=== PATIENT | female | born 1995 | race Caucasian/White ===

== ENCOUNTER 2019-04-04 18:24 | Emergency (ER) | payer OTHER ==
--- NOTE | 2019-04-04 18:54 | EDPHYS ---
Physician Documentation [facility] Name: Agustina Hernandez Age: 23 yrs Sex: Female : 1995 Arrival Date: 04/04/2019 Time: 18:29 Bed 24 Private MD: ED Physician Yannick Baird HPI: 04/04 18:50 This 23 yrs old Female presents to ER via Ambulatory with complaints of Sinus pm1 Congestion and Right Ear Pain. 18:50 The patient presents with pain, right ear and right side of sinuses. Onset: The pm1 symptoms/episode began/occurred 3 day(s) ago. Modifying factors: The symptoms are alleviated by nothing, the symptoms are aggravated by touching. Associated signs and symptoms: Pertinent negatives: cough, fever, sore throat. Severity of symptoms: in the emergency department the symptoms are worse. The patient has not recently seen a physician, and does not have an established primary care provider. 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 - Social history:: Smoking status: Patient/guardian denies using tobacco. - Ebola Screening: : No symptoms or risks identified at this time. ROS: 18:50 Constitutional: Negative for fever, chills, and weight loss, Eyes: Negative for injury, pm1 pain, redness, and discharge. 18:50 Neck: Negative for injury, pain, and swelling, Cardiovascular: Negative for chest pain, palpitations, and edema, Respiratory: Negative for shortness of breath, cough, wheezing, and pleuritic chest pain, Abdomen/GI: Negative for abdominal pain, nausea, vomiting, diarrhea, and constipation, Back: Negative for injury and pain, MS/Extremity: Negative for injury and deformity, Skin: Negative for injury, rash, and discoloration, Neuro: Negative for headache, weakness, numbness, tingling, and seizure. 18:50 ENT: Positive for ear pain, sinus congestion, sinus pain, Negative for sore throat, dental pain, difficulty swallowing, hoarseness. Exam: 18:50 Constitutional: This is a well developed, well nourished patient who is awake, alert, pm1 and in no acute distress. 18:50 Eyes: Pupils equal round and reactive to light, extra-ocular motions intact. Lids and lashes normal. Conjunctiva and sclera are non-icteric and not injected. Cornea within normal limits. Periorbital areas with no swelling, redness, or edema. 18:50 Neck: Trachea midline, no thyromegaly or masses palpated, and no cervical lymphadenopathy. Supple, full range of motion without nuchal rigidity, or vertebral point tenderness. No Meningismus. Chest/axilla: Normal chest wall appearance and motion. Nontender with no deformity. No lesions are appreciated. Cardiovascular: Regular rate and rhythm with a normal S1 and S2. No gallops, murmurs, or rubs. Normal PMI, no JVD. No pulse deficits. Respiratory: Lungs have equal breath sounds bilaterally, clear to auscultation and percussion. No rales, rhonchi or wheezes noted. No increased work of breathing, no retractions or nasal flaring. Back: No spinal tenderness. No costovertebral tenderness. Full range of motion. Skin: Warm, dry with normal turgor. Normal color with no rashes, no lesions, and no evidence of cellulitis. MS/ Extremity: Pulses equal, no cyanosis. Neurovascular intact. Full, normal range of motion. 18:50 Head/face: Sinus tenderness, that is moderate, is located over the right frontal sinus and right maxillary sinus. 18:50 ENT: External ear(s): are unremarkable, Ear canal(s): are normal, TM's: bulging, on the right, erythema, that is moderate, on the right, Examination of the other ear shows no obvious abnormality, Nose: is normal, Mouth: is normal, Posterior pharynx: is normal, airway is patent, no erythema, no exudate, no peritonsilar mass, no pooling of secretions, no swelling. 18:50 Neuro: Orientation: is normal, Motor: is normal, moves all fours, Gait: is steady, at a normal pace, without difficulty. Vital Signs: 18:32 BP 97 / 56; Pulse 96; Resp 16; Temp 98; Pulse Ox 100% on R/A; Weight 51.26 kg; Height 5 hb ft. 4 in. (162.56 cm); Pain 5/10; 18:32 Body Mass Index 19.40 (51.26 kg, 162.56 cm) MDM: 18:45 Patient medically screened. pm1 18:51 Data reviewed: vital signs. Data interpreted: Pulse oximetry: on room air is 100 %. pm1 Interpretation: normal. Counseling: I had a detailed discussion with the patient and/or guardian regarding: the historical points, exam findings, and any diagnostic results supporting the discharge/admit diagnosis, the need for outpatient follow up, to return to the emergency department if symptoms worsen or persist or if there are any questions or concerns that arise at home. Administered Medications: No medications were administered Disposition: 04/04/19 18:53 Discharged to Home. Impression: Otitis media, unspecified, right ear, Acute sinusitis. - Condition is Stable. - Discharge Instructions: Otitis Media, Adult, Sinusitis, Adult. - Prescriptions for Augmentin 875- 125 mg Oral Tablet - take 1 tablet by ORAL route every 12 hours for 10 days; 20 tablet. Zyrtec- D 5-120 mg Oral Tablet Sustained Release 12 hr - take 1 tablet by ORAL route every 12 hours As needed; 20 tablet. - Medication Reconciliation Form, Thank You Letter, Antibiotic Education, Prescription Opioid Use form. - Follow up: Emergency Department; When: As needed; Reason: Worsening of condition. Follow up: Private Physician; When: 2 - 3 days; Reason: Recheck today's complaints, Continuance of care, Re-evaluation by your physician. - Problem is new. - Symptoms have improved. Addendum: 04/07/2019 04:04 Co-signature as Attending Physician, Yannick Baird MD. g s Signatures: Donnie Burgess, ADVANCE AGENT ADVANCE AGENT pm1 Tricia Chaudhary RN RN Yannick Baird MD MD Matthew Harden RN RN mg2 Corrections: (The following items were deleted from the chart) 04/04 19:05 18:53 04/04/2019 18:53 Discharged to Home. Impression: Otitis media, unspecified, right mg2 ear; Acute sinusitis. Condition is Stable. Forms are Medication Reconciliation Form, Thank You Letter, Antibiotic Education, Prescription Opioid Use. Follow up: Emergency Department; When: As needed; Reason: Worsening of condition. Follow up: Private Physician; When: 2 - 3 days; Reason: Recheck today's complaints, Continuance of care, Re-evaluation by your physician. Problem is new. Symptoms have improved. pm1
--- NOTE | 2019-04-04 18:54 | ER ---
Nurse's Notes [facility] Name: Agustina Hernandez Age: 23 yrs Sex: Female : 1995 Arrival Date: 04/04/2019 Time: 18:29 Bed 24 Private MD: Diagnosis: Otitis media, unspecified, right ear;Acute sinusitis Presentation: 04/04 18:31 Presenting complaint: Sinus congestion and pressure x 3 days. Denies cough/fever. hb Transition of care: patient was not received from another setting of care. Onset of symptoms was April 01, 2019. Risk Assessment: Do you want to hurt yourself or someone else? Patient reports no desire to harm self or others. 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 18:31 Method Of Arrival: Ambulatory hb 18:31 Acuity: ARNOLD 4 hb 18:52 Initial Sepsis Screen: Does the patient meet any 2 criteria? No. Patient's initial mg2 sepsis screen is negative. Does the patient have a suspected source of infection? No. Patient's initial sepsis screen is negative. 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 - Social history:: Smoking status: Patient/guardian denies using tobacco. - Ebola Screening: : No symptoms or risks identified at this time. Screenin:51 Abuse screen: Denies threats or abuse. Denies injuries from another. Nutritional mg2 screening: No deficits noted. Tuberculosis screening: No symptoms or risk factors identified. Fall Risk None identified. Assessment: 18:50 General: Appears in no apparent distress. comfortable, Behavior is calm, cooperative. mg2 Pain: Complains of pain in right ear and nasal area Pain does not radiate. Pain currently is 3 out of 10 on a pain scale. Quality of pain is described as aching. Pain: Pain began 2-3 days ago. Neuro: Cardiovascular: Capillary refill < 3 seconds Patient's skin is warm and dry. Respiratory: Airway is patent Respiratory effort is even, unlabored, Respiratory pattern is regular, symmetrical. GI: No signs and/or symptoms were reported involving the gastrointestinal system. : No signs and/or symptoms were reported regarding the genitourinary system. EENT: Reports pain right ear and nasal area. Derm: Skin is intact, is healthy with good turgor, Skin is pink, warm \T\ dry. normal. Musculoskeletal: Circulation, motion, and sensation intact. Capillary refill < 3 seconds. Vital Signs: 18:32 BP 97 / 56; Pulse 96; Resp 16; Temp 98; Pulse Ox 100% on R/A; Weight 51.26 kg; Height 5 hb ft. 4 in. (162.56 cm); Pain 5/10; 18:32 Body Mass Index 19.40 (51.26 kg, 162.56 cm) hb ED Course: 18:29 Patient arrived in ED. mr 18:32 Triage completed. hb 18:32 Arm band placed on. hb 18:44 Donnie Burgess NP is PHCP. pm1 18:44 Yannick Baird MD is Attending Physician. pm1 18:45 Matthew Harden, LUIS is Primary Nurse. mg2 18:52 Patient has correct armband on for positive identification. mg2 18:52 No provider procedures requiring assistance completed. Patient did not have IV access mg2 during this emergency room visit. Administered Medications: No medications were administered Outcome: 18:53 Discharge ordered by . pm1 19:04 Discharged to home ambulatory. mg2 19:04 Condition: stable 19:04 Discharge instructions given to patient, Instructed on discharge instructions, follow up and referral plans. medication usage, Demonstrated understanding of instructions, follow-up care, medications, Prescriptions given X 2. 19:05 Patient left the ED. mg2 Signatures: Kaushal Nika cintron Donnie Burgess, ERICA AUTOMATIC MACHINE ATTENDANT pm1 Tricia Chaudhary, LUIS RN Matthew Harden RN RN mg2
== END 2019-04-04 19:05 | disposition home or self-care (01) ==
LOC: ER 18:24
DX: H66.91 Otitis media, unspecified, right ear (principal); J01.90 Acute sinusitis, unspecified
CPT/HCPCS: 99282

== ENCOUNTER 2021-09-04 16:32 | Inpatient (IN) | payer OTHER ==
--- OUTSIDE RECORDS SUMMARY | 2021-09-04 18:15 | XMS REPORT | Continuity of Care Document ---
:1995 Author Organization [facility] t Address [address] [place] [address] Care Team Providers Name Role Phone Edgar Mason Attending Clinician Unavailable Dorita Heredia Attending Clinician Unavailable Doctor Unassigned, Name Attending Clinician Unavailable Prince NORTON Attending Clinician Unavailable Prince Norton MD Attending Clinician Heide TERAN Attending Clinician Ryne SMITH Attending Clinician Unavailable Digna Hyatt Attending Clinician Physician, Primary or Family Admitting Clinician UnavailDorita Dey Admitting Clinician Unavailable Payers Payer Name Policy Type Policy Number Effective Date Expiration Date Luly villeda [employer] O [id number] 2014 00:00:00 Problems Condition Condition Condition Status Onset Resolution Last Treating Co mments Source Name Details Category Date Date Treatment Clinician Date No known No known Disease Unive rs active active ity of problems problems [facility] Allergies, Adverse Reactions, Alerts Allergy Allergy Status Severity Reaction(s) Onset Inactive Treating Comm ents Source Name Type Date Date Clinician No Known DA Active U [facility] Allergie 7-15 Clear s 00:00: Gray 00 [facility] No Known DA Active U [facility] Allergie 7-15 Clear s 00:00: Gray 00 [facility] NO KNOWN Drug Active Univers ALLERGIE Class ity of S [facility] Social History Social Habit Start Date Stop Date Quantity Comments Source Exposure to Not sure University SARS-CoV-2 [place] [facility] (event) Branch Alcohol intake 2021-02-02 2021-02-02 Ex-drinker University 00:00:00 00:00:00 (finding) [facility] Tobacco use and 2021-02-02 2021-02-02 Never used Universit y of exposure 00:00:00 00:00:00 [facility] Sex Assigned At [birth year] Universit y of 00:00:00 00:00:00 [facility] Smoking Status Start Date Stop Date Source Never smoker [facility] Medications Ordered Filled Start Stop Current Ordering Indication Dosage Frequency Signature Comments Components Source Medication Medication Date Date Medication? Clinician (SIG) Name Name ampicillin Yes [id number] 500mg Take 1 Univers 500 mg 4-26 capsule by ity of capsule 00:00: mouth [place] 00 every 6 Medical (six) Branch hours. ampicillin Yes [id number] 500mg Take 1 Univers 500 mg 4-26 capsule by ity of capsule 00:00: mouth [place] 00 every 6 Medical (six) Branch hours. ampicillin Yes [id number] 500mg Take 1 Univers 500 mg 4-26 capsule by ity of capsule 00:00: mouth [place] 00 every 6 Medical (six) Branch hours. acetaminoph 2020- No 650mg 650 mg, U nivers en 01-28-23 Oral, ity of (TYLENOL) 22:30: 10:29 ONCE, 1 [place] tablet 650 00 :00 dose, Anuradha Medi alvin mg 01/28/21 at Branch 1730, SAPPHIRE NaCl 0.9% 2020- No 1000mL at 999 Uni vers (NS) bolus 01-28 04-22 mL/hr, ity of infusion 19:00: 20:52 1,000 mL, [place]aza as 1,000 mL 00 :00 IV Medical Infusion, Branch ONCE, 1 dose, Anuradha 01/28/21 at 1400, STAT methylPREDN Yes [id number] Take by Univers ISolone 4 2-15 mouth ity of mg tablets 00:00: [place]INSTRU [place] 00 CTIONS. Medical follow Branch package directions bromphenira Yes [id number] 5mL Take 5 mL Univers mine-pseudo 2-15 by mouth 4 it y of ephedrine-D 00:00: (four[place] (BROMFED 00 times Medical DM) 2-30-10 daily as Bran ch mg/5 mL needed for syrup Congestion /Allergies . albuterol 2020-0 Yes [id number] 2{puff} Inhale 2 Univers 90 2-15 Puffs ity of mcg/actuati 00:00: every 6 [place] on inhaler 00 (six) Medical hours as Branch needed for Wheezing or Shortness of Breath. methylPREDN 2020-0 Yes [id number] Take by Univers ISolone 4 2-15 mouth ity of mg tablets 00:00: [place]-INSTRU [place] 00 CTIONS. Medical follow Branch package directions bromphenira 2020-0 Yes [id number] 5mL Take 5 mL Univers mine-pseudo 2-15 by mouth 4 it y of ephedrine-D 00:00: (four[place] (BROMFED 00 times Medical DM) 2-30-10 daily as Bran ch mg/5 mL needed for syrup Congestion /Allergies . albuterol 2020-0 Yes [id number] 2{puff} Inhale 2 Univers 90 2-15 Puffs ity of mcg/actuati 00:00: every 6 [place] on inhaler 00 (six) Medical hours as Branch needed for Wheezing or Shortness of Breath. methylPREDN 2020-0 Yes [id number] Take by Univers ISolone 4 2-15 mouth ity of mg tablets 00:00: [place]-INSTRU [place] 00 CTIONS. Medical follow Branch package directions bromphenira 2020-0 Yes [id number] 5mL Take 5 mL Univers mine-pseudo 2-15 by mouth 4 it y of ephedrine-D 00:00: (four[place] (BROMFED 00 times Medical DM) 2-30-10 daily as Bran ch mg/5 mL needed for syrup Congestion /Allergies . albuterol 2020-0 Yes [id number] 2{puff} Inhale 2 Univers 90 2-15 Puffs ity of mcg/actuati 00:00: every 6 [place] on inhaler 00 (six) Medical hours as Branch needed for Wheezing or Shortness of Breath. methylPREDN 2020-0 Yes [id number] Take by Univers ISolone 4 2-15 mouth ity of mg tablets 00:00: SEE-INSTRU [place] 00 CTIONS. Medical follow Branch package directions bromphenira 2020-0 Yes [id number] 5mL Take 5 mL Univers mine-pseudo 2-15 by mouth 4 it y of ephedrine-D 00:00: (four[place] (BROMFED 00 times Medical DM) 2-30-10 daily as Bran ch mg/5 mL needed for syrup Congestion /Allergies . albuterol 2020-0 Yes [id number] 2{puff} Inhale 2 Univers 90 2-15 Puffs ity of mcg/actuati 00:00: every 6 [place] on inhaler 00 (six) Medical hours as Branch needed for Wheezing or Shortness of Breath. methylPREDN 2020-0 Yes [id number] Take by Univers ISolone 4 2-15 mouth ity of mg tablets 00:00: SEE-INSTRU [place] 00 CTIONS. Medical follow Branch package directions bromphenira 2020-0 Yes [id number] 5mL Take 5 mL Univers mine-pseudo 2-15 by mouth 4 it y of ephedrine-D 00:00: (four[place] (BROMFED 00 times Medical DM) 2-30-10 daily as Bran ch mg/5 mL needed for syrup Congestion /Allergies . albuterol 2020-0 Yes [id number] 2{puff} Inhale 2 Univers 90 2-15 Puffs ity of mcg/actuati 00:00: every 6 [place] on inhaler 00 (six) Medical hours as Branch needed for Wheezing or Shortness of Breath. methylPREDN 2020-0 Yes [id number] Take by Univers ISolone 4 2-15 mouth ity of mg tablets 00:00: SEE-INSTRU [place] 00 CTIONS. Medical follow Branch package directions bromphenira 2020-0 Yes [id number] 5mL Take 5 mL Univers mine-pseudo 2-15 by mouth 4 it y of ephedrine-D 00:00: (four[place] (BROMFED 00 times Medical DM) 2-30-10 daily as Bran ch mg/5 mL needed for syrup Congestion /Allergies . albuterol 2020-0 Yes [id number] 2{puff} Inhale 2 Univers 90 2-15 Puffs ity of mcg/actuati 00:00: every 6 [place] on inhaler 00 (six) Medical hours as Branch needed for Wheezing or Shortness of Breath. amoxicillin 2019-0 2020- No [id number] 500mg Take 1 Univers 500 mg 11-23 capsule by ity of capsule 00:00: 05:59 mouth 3 [place] 00 :00 (three) Medical times Branch daily for 7 days. Immunizations Ordered Immunization Filled Immunization Date Status Commen ts Source Name Name Influenza Virus 2010-10-18 Completed Universit y of Vaccine 00:00:00 [facility] Influenza Virus 2010-10-18 Completed Universit y of Vaccine 00:00:00 [facility] Influenza Virus 2010-10-18 Completed Universit y of Vaccine 00:00:00 [facility] Influenza Virus 2010-10-18 Completed Universit y of Vaccine 00:00:00 [facility] Influenza Virus 2010-10-18 Completed Universit y of Vaccine 00:00:00 [facility] Influenza Virus 2010-10-18 Completed Universit y of Vaccine 00:00:00 [facility] HPV 2008-05-28 Completed University of 00:00:00 [facility] HPV 2008-05-28 Completed University of 00:00:00 [facility] HPV 2008-05-28 Completed University of 00:00:00 [facility] HPV 2008-05-28 Completed University of 00:00:00 [facility] HPV 2008-05-28 Completed University of 00:00:00 [facility] HPV 2008-05-28 Completed University of 00:00:00 [facility] Meningococcal 2007-10-31 Completed University of Polysaccharide 00:00:00 [place] Medi alvin (groups A, C, Y and Branc h W-135) conjugate vaccine (MCV4P) TDAP 2007-10-31 Completed University of 00:00:00 [facility] HEPATITIS A 2007-10-31 Completed University of 00:00:00 [facility] HPV 2007-10-31 Completed University of 00:00:00 [facility] Meningococcal 2007-10-31 Completed University of Polysaccharide 00:00:00 [place] Medi alvin (groups A, C, Y and Branc h W-135) conjugate vaccine (MCV4P) TDAP 2007-10-31 Completed University of 00:00:00 [facility] HEPATITIS A 2007-10-31 Completed University of 00:00:00 [facility] HPV 2007-10-31 Completed University of 00:00:00 [place] [facility] Meningococcal 2007-10-31 Completed University of Polysaccharide 00:00:00 [place] [facility]vin (groups A, C, Y and Branc h W-135) conjugate vaccine (MCV4P) TDAP 2007-10-31 Completed University of 00:00:00 [facility] HEPATITIS A 2007-10-31 Completed University of 00:00:00 [facility] HPV 2007-10-31 Completed University of 00:00:00 [facility] Meningococcal 2007-10-31 Completed University of Polysaccharide 00:00:00 [place] Medi alvin (groups A, C, Y and Branc h W-135) conjugate vaccine (MCV4P) TDAP 2007-10-31 Completed University of 00:00:00 [facility] HEPATITIS A 2007-10-31 Completed University of 00:00:00 [facility] HPV 2007-10-31 Completed University of 00:00:00 [facility] Meningococcal 2007-10-31 Completed University of Polysaccharide 00:00:00 [place] Med[facility] alvin (groups A, C, Y and Branc h W-135) conjugate vaccine (MCV4P) TDAP 2007-10-31 Completed University of 00:00:00 [facility] HEPATITIS A 2007-10-31 Completed University of 00:00:00 [facility] HPV 2007-10-31 Completed University of 00:00:00 [facility] Meningococcal 2007-10-31 Completed University of Polysaccharide 00:00:00 [place] Medi alvin (groups A, C, Y and Branc h W-135) conjugate vaccine (MCV4P) Tdap 2007-10-31 Completed University of 00:00:00 [facility] HEPATITIS A 2007-10-31 Completed University of 00:00:00 [facility] HPV 2007-10-31 Completed University of 00:00:00 [facility] HEPATITIS A 2006-08-29 Completed University of 00:00:00 [facility] HEPATITIS A 2006-08-29 Completed University of 00:00:00 [facility] HEPATITIS A 2006-08-29 Completed University of 00:00:00 [facility] HEPATITIS A 2006-08-29 Completed University of 00:00:00 [facility] HEPATITIS A 2006-08-29 Completed University of 00:00:00 [facility] HEPATITIS A 2006-08-29 Completed University of 00:00:00 [facility] MMR 2001-07-23 Completed University of 00:00:00 [facility] Polio (IPV/OPV) 2001-07-23 Completed Universit y of 00:00:00 [place] [facility] DTP 2001-07-23 Completed University of 00:00:00 [place] [facility] MMR 2001-07-23 Completed University of 00:00:00 [facility] Polio (IPV/OPV) 2001-07-23 Completed Universit y of 00:00:00 [facility] DTP 2001-07-23 Completed University of 00:00:00 [facility] MMR 2001-07-23 Completed University of 00:00:00 [place] [facility] Polio (IPV/OPV) 2001-07-23 Completed Universit y of 00:00:00 [facility] DTP 2001-07-23 Completed University of 00:00:00 [facility] MMR 2001-07-23 Completed University of 00:00:00 [facility] Polio (IPV/OPV) 2001-07-23 Completed Universit y of 00:00:00 [facility] DTP 2001-07-23 Completed University of 00:00:00 [facility] MMR 2001-07-23 Completed University of 00:00:00 [facility] Polio (IPV/OPV) 2001-07-23 Completed Universit y of 00:00:00 [facility] DTP 2001-07-23 Completed University of 00:00:00 [facility] MMR 2001-07-23 Completed University of 00:00:00 [facility] Polio (IPV/OPV) 2001-07-23 Completed Universit y of 00:00:00 [facility] DTP 2001-07-23 Completed University of 00:00:00 [facility] MMR 1999-03-10 Completed University of 00:00:00 [facility] Polio (IPV/OPV) 1999-03-10 Completed Universit y of 00:00:00 [facility] DTP 1999-03-10 Completed University of 00:00:00 [facility] HIB 4 Dose Schedule 1999-03-10 Completed Unive rsity of 00:00:00 [facility] MMR 1999-03-10 Completed University of 00:00:00 [facility] Polio (IPV/OPV) 1999-03-10 Completed Universit y of 00:00:00 [facility] DTP 1999-03-10 Completed University of 00:00:00 [facility] HIB 4 Dose Schedule 1999-03-10 Completed Unive rsity of 00:00:00 [facility] MMR 1999-03-10 Completed University of 00:00:00 [place] [facility] Polio (IPV/OPV) 1999-03-10 Completed Universit y of 00:00:00 [facility] DTP 1999-03-10 Completed University of 00:00:00 [facility] HIB 4 Dose Schedule 1999-03-10 Completed Unive rsity of 00:00:00 [facility] MMR 1999-03-10 Completed University of 00:00:00 [place] [facility] Polio (IPV/OPV) 1999-03-10 Completed Universit y of 00:00:00 [facility] DTP 1999-03-10 Completed University of 00:00:00 [facility] HIB 4 Dose Schedule 1999-03-10 Completed Unive rsity of 00:00:00 [facility] MMR 1999-03-10 Completed University of 00:00:00 [facility] Polio (IPV/OPV) 1999-03-10 Completed Universit y of 00:00:00 [facility] DTP 1999-03-10 Completed University of 00:00:00 [facility] HIB 4 Dose Schedule 1999-03-10 Completed Unive rsity of 00:00:00 [facility] MMR 1999-03-10 Completed University of 00:00:00 [facility] Polio (IPV/OPV) 1999-03-10 Completed Universit y of 00:00:00 [facility] DTP 1999-03-10 Completed University of 00:00:00 [facility] HIB 4 Dose Schedule 1999-03-10 Completed Unive rsity of 00:00:00 [facility] Polio (IPV/OPV) 1997-09-01 Completed Universit y of 00:00:00 [facility] DTP 1997-09-01 Completed University of 00:00:00 [facility] HIB 4 Dose Schedule 1997-09-01 Completed Unive rsity of 00:00:00 [facility] Polio (IPV/OPV) 1997-09-01 Completed Universit y of 00:00:00 [facility] DTP 1997-09-01 Completed University of 00:00:00 [facility] HIB 4 Dose Schedule 1997-09-01 Completed Unive rsity of 00:00:00 [facility] Polio (IPV/OPV) 1997-09-01 Completed Universit y of 00:00:00 [facility] DTP 1997-09-01 Completed University of 00:00:00 [facility] HIB 4 Dose Schedule 1997-09-01 Completed Unive rsity of 00:00:00 [facility] Polio (IPV/OPV) 1997-09-01 Completed Universit y of 00:00:00 [facility] DTP 1997-09-01 Completed University of 00:00:00 [facility] HIB 4 Dose Schedule 1997-09-01 Completed Unive rsity of 00:00:00 [facility] Polio (IPV/OPV) 1997-09-01 Completed Universit y of 00:00:00 [facility] DTP 1997-09-01 Completed University of 00:00:00 [facility] HIB 4 Dose Schedule 1997-09-01 Completed Unive rsity of 00:00:00 [facility] Polio (IPV/OPV) 1997-09-01 Completed Universit y of 00:00:00 [facility] DTP 1997-09-01 Completed University of 00:00:00 [facility] HIB 4 Dose Schedule 1997-09-01 Completed Unive rsity of 00:00:00 [facility] Polio (IPV/OPV) 1997-05-07 Completed Universit y of 00:00:00 [facility] DTP 1997-05-07 Completed University of 00:00:00 [facility] HIB 4 Dose Schedule 1997-05-07 Completed Unive rsity of 00:00:00 [facility] Hep B, Adol or Pedi 1997-05-07 Completed Unive rsity of Dosage 00:00:00 [facility] Polio (IPV/OPV) 1997-05-07 Completed Universit y of 00:00:00 [facility] DTP 1997-05-07 Completed University of 00:00:00 [facility] HIB 4 Dose Schedule 1997-05-07 Completed Unive rsity of 00:00:00 [facility] Hep B, Adol or Pedi 1997-05-07 Completed Unive rsity of Dosage 00:00:00 [facility] Polio (IPV/OPV) 1997-05-07 Completed Universit y of 00:00:00 [facility] DTP 1997-05-07 Completed University of 00:00:00 [facility] HIB 4 Dose Schedule 1997-05-07 Completed Unive rsity of 00:00:00 [place] [facility] Hep B, Adol or Pedi 1997-05-07 Completed Unive rsity of Dosage 00:00:00 [facility] Polio (IPV/OPV) 1997-05-07 Completed Universit y of 00:00:00 [facility] DTP 1997-05-07 Completed University of 00:00:00 [facility] HIB 4 Dose Schedule 1997-05-07 Completed Unive rsity of 00:00:00 [place] [facility] Hep B, Adol or Pedi 1997-05-07 Completed Unive rsity of Dosage 00:00:00 [facility] Polio (IPV/OPV) 1997-05-07 Completed Universit y of 00:00:00 [facility] DTP 1997-05-07 Completed University of 00:00:00 [facility] HIB 4 Dose Schedule 1997-05-07 Completed Unive rsity of 00:00:00 [facility] Hep B, Adol or Pedi 1997-05-07 Completed Unive rsity of Dosage 00:00:00 [facility] Polio (IPV/OPV) 1997-05-07 Completed Universit y of 00:00:00 [facility] DTP 1997-05-07 Completed University of 00:00:00 [facility] HIB 4 Dose Schedule 1997-05-07 Completed Unive rsity of 00:00:00 [place] [facility] Hep B, Adol or Pedi 1997-05-07 Completed Unive rsity of Dosage 00:00:00 [facility] Polio (IPV/OPV) 1996 Completed Universit y of 00:00:00 [facility] DTP 1996 Completed University of 00:00:00 [facility] HIB 4 Dose Schedule 1996 Completed Unive rsity of 00:00:00 [place] [facility] Hep B, Adol or Pedi 1996 Completed Unive rsity of Dosage 00:00:00 [facility] Polio (IPV/OPV) 1996 Completed Universit y of 00:00:00 [facility] DTP 1996 Completed University of 00:00:00 [facility] HIB 4 Dose Schedule 1996 Completed Unive rsity of 00:00:00 [place] [facility] Hep B, Adol or Pedi 1996 Completed Unive rsity of Dosage 00:00:00 [facility] Polio (IPV/OPV) 1996 Completed Universit y of 00:00:00 [facility] DTP 1996 Completed University of 00:00:00 [facility] HIB 4 Dose Schedule 1996 Completed Unive rsity of 00:00:00 [facility] Hep B, Adol or Pedi 1996 Completed Unive rsity of Dosage 00:00:00 [facility] Polio (IPV/OPV) 1996 Completed Universit y of 00:00:00 [facility] DTP 1996 Completed University of 00:00:00 [facility] HIB 4 Dose Schedule 1996 Completed Unive rsity of 00:00:00 [place] [facility] Hep B, Adol or Pedi 1996 Completed Unive rsity of Dosage 00:00:00 [facility] Polio (IPV/OPV) 1996 Completed Universit y of 00:00:00 [facility] DTP 1996 Completed University of 00:00:00 [facility] HIB 4 Dose Schedule 1996 Completed Unive rsity of 00:00:00 [place] [facility] Hep B, Adol or Pedi 1996 Completed Unive rsity of Dosage 00:00:00 [facility] Polio (IPV/OPV) 1996 Completed Universit y of 00:00:00 [facility] DTP 1996 Completed University of 00:00:00 [place] [facility] HIB 4 Dose Schedule 1996 Completed Unive rsity of 00:00:00 [place] [facility] Hep B, Adol or Pedi 1996 Completed Unive rsity of Dosage 00:00:00 [place] [facility] Hep B, Adol or Pedi 1996 Completed Unive rsity of Dosage 00:00:00 [place] [facility] Hep B, Adol or Pedi 1996 Completed Unive rsity of Dosage 00:00:00 [place] [facility] Hep B, Adol or Pedi 1996 Completed Unive rsity of Dosage 00:00:00 [place] [facility] Hep B, Adol or Pedi 1996 Completed Unive rsity of Dosage 00:00:00 [place] [facility] Hep B, Adol or Pedi 1996 Completed Unive rsity of Dosage 00:00:00 [place] [facility] Hep B, Adol or Pedi 1996 Completed Unive rsity of Dosage 00:00:00 [facility] Vital Signs Vital Name Observation Time Observation Value Comments Source Systolic blood 2021-02-01 18:18:00 111 mm[Hg] Univer sity of pressure [place] [facility] Diastolic blood 2021-02-01 18:18:00 74 mm[Hg] Unive rsity of pressure [place] [facility] Heart rate 2021-02-01 18:18:00 81 /min Universi ty of [place] [facility] Respiratory rate 2021-02-01 18:18:00 20 /min Univ ersity of [place] [facility] Body height 2021-02-01 18:18:00 160 cm Universi ty of [place] [facility] Body weight 2021-02-01 18:18:00 49.624 kg Universi ty of [place] [facility] BMI 2021-02-01 18:18:00 19.38 kg/m2 Universi ty of [place] [facility] Systolic blood 2021-02-01 18:18:00 111 mm[Hg] Univer sity of pressure [place] [facility] Diastolic blood 2021-02-01 18:18:00 74 mm[Hg] Unive rsity of pressure [place] [facility] Heart rate 2021-02-01 18:18:00 81 /min Universi ty of [place] [facility] Respiratory rate 2021-02-01 18:18:00 20 /min Univ ersity of [place] [facility] Body height 2021-02-01 18:18:00 160 cm Universi ty of [place] [facility] Body weight 2021-02-01 18:18:00 49.624 kg Universi ty of [place] [facility] BMI 2021-02-01 18:18:00 19.38 kg/m2 Universi ty [facility] [place] [facility] Systolic blood 2021-01-28 20:06:00 91 mm[Hg] Univer sity of pressure [place] [facility] Diastolic blood 2021-01-28 20:06:00 64 mm[Hg] Unive rsity of pressure [place] [facility] Heart rate 2021-01-28 20:06:00 76 /min Universi ty of [place] [facility] Respiratory rate 2021-01-28 20:06:00 17 /min [facility] in 2021-01-28 20:06:00 97 /min University of Arterial blood by [facility] Pulse oximetry Branch Body temperature 2021-01-28 17:37:00 36.56 [facility] Body weight 2021-01-28 17:37:00 49.901 kg Universi [facility] BMI 2021-01-28 17:37:00 19.49 kg/m2 Universi ty [facility] Systolic blood 2019-11-23 18:20:00 106 mm[Hg] Univer sity of pressure [facility] Diastolic blood 2019-11-23 18:20:00 75 mm[Hg] Unive rsity of pressure [facility] Heart rate 2019-11-23 18:20:00 84 /min [facility] Body temperature 2019-11-23 18:20:00 36.83 [facility] Respiratory rate 2019-11-23 18:20:00 16 /min [facility] Body height 2019-11-23 18:20:00 160 cm Universi ty [facility] Body weight 2019-11-23 18:20:00 50.1 kg Universi [facility] BMI 2019-11-23 18:20:00 19[facility]57 [facility] 2019-11-23 18:20:00 98 /min University of Arterial blood by [facility] Pulse oximetry [place] Procedures Procedure Date / Time Performing Clinician Source Performed [id number] 2021-04-24 00:00:00 MAL [facility] [id number] 2021-04-24 00:00:00 MOERICAE [facility] INSURANCE CORRESPONDENCE 2021-02-17 05:01:00 Doctor Unassigned, [facility] <14 WEEKS US 2021-02-02 16:36:11 Genevieve Norton [facility] ABORH CONFIRMATION 2021-01-28 20:53:00 Harpreet Jaeger [facility] POCT TEST 2021-01-28 19:58:00 Harpreet Jaeger [facility] HB ABO GROUPING 2021-01-28 19:51:00 Harpreet Jaeger [facility] BASIC METABOLIC PANEL 2021-01-28 19:48:00 Harpreet Jaeger [facility] (NA, K, CL, CO2, GLUCOSE, Medica l Branch BUN, CREATININE, CA) URINALYSIS 2021-01-28 19:48:00 Harpreet Jaeger [facility] CBC WITHOUT DIFF 2021-01-28 19:47:00 Harpreet Jaeger [facility] US FIRST 2021-01-28 19:18:36 Harpreet Jaeger [facility] TRIMESTER LESS THAN 14 Medical [place] WEEKS WITH TRANSVAGINAL Encounters Start End Encounter Admission Attending Care Care Encounter Source Date/Time Date/Time Type Type Clinicians Facility Department ID 2021-08-08 Emergency [facility] [id number] Univers 14:39:46 ity of [facility] 2021-05-09 2021-05-09 [id number] 15:37:00 17:50:00 Virgen [id number] [facility] 2021-04-22 2021-04-25 In[id number] 20:19:00 11:38:00 Rupali [id number] [facility] 2021-04-23 2021-04-23 Outpatient Yan, HCACL LABO [id number] [facility] 14:52:00 14:52:00 Rupali [id number] [facility] 2021-02-17 2021-02-17 Orders Doctor TATIANA Vickers2.840.114 [id number] [facility] 00:00:00 00:00:00 Only Unassigned, BRAYAN 350.1.13.10 ity of [place] [facility] 4.2.7.2.686 [place]aza as [phone] [address] 2021-02-17 2021-02-17 Orders Doctor TATIANA Vickers2.840.114 [id number] 00:00:00 00:00:00 Only Unassigned, BRAYAN 350.1.13.10 [place] [facility] 4.2.7.2.686 [id number] 2021-02-15 2021-02-15 Outpatient Digna [facility] [id number] N-20 Univers 13:00:00 13:00:00 GENEVIEVE [id number] ity [facility] 2021-02-15 2021-02-15 Outpatient Digna [facility] [id number] Univers 13:00:00 13:00:00 GENEVIEVE ity [facility] 2021-02-01 2021-02-01 Office Errol, TAMARAIT 1.2.840.114 [id number] Univers 13:03:34 15:05:31 Visit [facility] HEALTH 350.1.13.10 i ty of [place] [id number] [facility] [address] 2021-02-01 2021-02-01 Office TAMARA [place] 1.2.840.114 [id number] 13:03:34 15:05:31 Visit [facility] HEALTH 350.1.13.10 CLINICS [id number] [facility] 2021-02-01 2021-02-01 [facility] [id number] N-20 Univers 13:00:00 13:00:00 GENEVIEVE [id number] y [facility] 2021-02-01 2021-02-01 Outpatient Digna [facility] [id number] Univers 13:00:00 13:00:00 GENEVIEVE ity [facility] 2021-01-28 2021-01-28 Emergency Jaeger, TRAUMA 1.2.840.114 [id number] [facility] 12:39:00 16:43:00 [facility] 350.1.13.10 [place] [id number] [facility] [address] 2021-01-27 2021-01-27 Nurse Henrietta Michele 1.2.840.114 [id number] Univers 00:00:00 00:00:00 Triage BRAYAN 350.1.13.10 it y of HOSPITAL 4.2.7.2.686 [place] [id number] [facility] [address] 2019-11-23 2019-11-23 [facility] 1.2.840.114 [id number] [facility] 12:00:38 12:15:38 [facility] 350.1.13.10 ity of Pediatric 4.2.7.2.686 mar[place] [phone] [facility] [address] Results Test Description Test Time Test Comments Results Result Comments Source UA RFLX MICR CULT IF INDICATED 2021-05-09 16:18:00 Test Item Value Reference Range Interpretation Comme nts UA COLOR (test code = COLU) YELLOW YELLOW UA APPEARANCE (test code = APPU) CLOUDY CLEAR A UA GLUCOSE DIPSTICK (test code = DGLUU) NEGATIVE NEG UA BILIRUBIN DIPSTICK (test code = BILU) NEGATIVE NEG UA KETONE DIPSTICK (test code = KETU) NEGATIVE NEG UA SPECIFIC GRAVITY (test code = SGU) 1.019 1.001-1.035 N UA BLOOD DIPSTICK (test code = XIN) 3+ NEG A UA PH DIPSTICK (test code = DHARA) 6.0 5-9 UA PROTEIN DIPSTICK (test code = PROU) 2+ NEG A UA UROBILINIOGEN DIPSTICK (test code = URO) NEGATIVE mg/dL NEG UA NITRITE DIPSTICK (test code = KAUSHIK) NEG NEG UA LEUKOCYTE ESTERASE DIPSTICK (test code = LEUU) 3+ NEG A UA WBC (test code = WBCU) 15-20 #/hpf NONE SEEN A UA RBC (test code = RBCU) 30-40 #/hpf NONE SEEN A UA EPITHELIAL CELLS (test code = EPIU) RARE #/HPF RARE-FEW UA BACTERIA (test code = BACU) FEW /HPF RARE-FEW UA MUCUS (test code = MUCU) RARE NONE SEEN Indication for culture: Gross Hematuria Dysuria/Frequency Flank Pain Suprapubic PainSpecimen Description: CLEAN CATCHFOREIGN [id number] 16:50:00 Test Item Value Reference Range Interpretation Comments FOREIGN BODY (test code = FORBODY) RUN DATE: 04/28/21 [facility] PAGE 1 RUN TIME: 1922 Specimen Inquiry RUN USER: INTERFACE HELLEN ENT: KAREN GRANT LOC: DannyAPU2 #: [id number] AGE/SX: / ROOM: [facility] RE04/22/21REG DR: Rupali Heredia MD : 89 BED: A DIS: 04/25/21 STATUS: DIS IN TLOC: SPEC #: [id number] RECD: 04/26/21 STATUS: DI BLAIR #: [id number] KELVIN: 04/24/21- SUBM DR: Rupali Heredia MD ENTERED: 04/26/21 SP TYPE: FORBODY OTHR DR: ORDERED: GROSS ONLY CODES: [id number] - URETER, NOS PROCEDURES: GROSS ONLY (Incomplete) TISSUES: URETER, NOS - RIGHT URETERAL CALCULUS CLINICAL HISTORY 25 year old, right flank pain (terrie) FINAL DIAGNOSIS Right ureteral stone, removal: - urinary calculus (gross identification) CPT: 40655 ssa/wpd GROSS DESCRIPTION ANATOMIC SOURCE OF TISSUE (per Requisition): Right ureteral calculus The specimen is received in a formalin-filled container, labeled with the patient's name and designated "right ureteral calculus". The specimen consists of two irregular, lerner-yellow to brown calculi measuring 0.3 cm each. The specimen is for gross examination only. tapan/terrie 04/26/21 ---- Signed Chitra Gr 04/27/21 1650 END OF REPORT COVID 19 Asymptomatic IH [id number] 10:45:00 Test Item Value Reference Range Interpretation Comments COVID 19 NEGATIVE NEGATIVE This test has b een Asymptomatic IH AG authorize d only for the (test code = detection ofpro teins from COVNONPUIAG) SARS-CoV-2, not for any other viruses orpathogens. N egative results should be treated as presumptive andconfirmed wi th a molecular assay , if necessary for patientmanageme nt. Negative result s do not rule out COVID- 19 andshould not b e used as the sole basis for treatment orpat ient management deci sions, including infec tion controldecision s. Negative result s should be considered i n thecontext of a patient's recent exposure s, history and thepresence of clinical signs and symptoms consis tent withCOVID-19. T his test has not been FD A cleared or approved; th e test hasbeen authori dangelo by FDA under an Emerge ncy Use Authorization(E UA) for use by janice cook certified under the CLIA thatmeet the re quirements to perform mode rate, high or waivedcomple xity tests. This harvey t is authorized for use at thePoint of Car e (POC), i.e., in patien t care settingsoperati ng under a CLIA Certificat e of Waiver, Certifi baron ofCompliance, o r Certificate of Accreditation. This test is only authori zed for the duration of thedeclaration that circumstances e xist justifying theauthorizatio n of emergency use o f in vitro diagnostic test sfor detection and/o r diagnosis of CO VID-19 under Dyoefkx66 4(b)(1) of the Act, 21 U.S .C. 360bbb-3(b)(1), unless theauthorizatio n is terminated or r evoked sooner. AG HEPATITIS B [id number] 22:40:00 Test Item Value Reference Range Interpretation Comments AG HEPATITIS B SURFACE (test code NONREACTIVE NONREACTIVE = HBSAG) IS CONSENT FORM SIGNED FOR HIV TESTING? B HEPATITIS C [id number] 22:40:00 Test Item Value Reference Range Interpretation Comments AB HEPATITIS C (test code = NONREACTIVE NONREACTIVE HCVAB) SIGNAL TO CUTOFF (test code = <0.02 <0.80 N CUTOFF) IS CONSENT FORM SIGNED FOR HIV TESTING? B [id number] 22:40:00 Test Item Value Reference Range Interpretation Comments AB TREPONEMA (test code = TREPAB) NONREACTIVE NONREACTIVE IS CONSENT FORM SIGNED FOR HIV TESTING? [facility] HIV 1 22:40:00 Test Item Value Reference Range Interpretation Comments AB HIV 1 2 (test code = NONREACTIVE INDEX NONREACTIVE XVW31DO) IS CONSENT FORM SIGNED FOR HIV TESTING? [facility] HIV 1 22:39:00 Test Item Value Reference Range Interpretation Comments AB HIV 1 2 (test code = NONREACTIVE INDEX NONREACTIVE KED42VB) IS CONSENT FORM SIGNED FOR HIV TESTING? Y- US RETRO [id number] 00:00:00 [facility] : 1995 Sex: F Patient Name: KAREN GRANT Unit No: [id number] EXAMS: CPT CODE: [id number] US RETRO LTD 48242 PROCEDURE INFORMATION: Exam: US Retroperitoneal Limited, Kidneys Exam date and time: 04/23/2021 2:17 PM Age: 25 years old Clinical indication: Abdominal pain; Flank; Right; ; Additional info: Flank pain TECHNIQUE: Imaging protocol: Real-time ultrasound ofthe retroperitoneum with image documentation. Examination was focused on the kidneys. COMPARISON: No relevant prior studies available. FINDINGS: Right kidney: The right kidney measures 12.2 x 4.9 x 6.1 cm. There is no nephrolithiasis or renal mass. There is mild right hydronephrosis. Left kidney: The left kidney measures 12.7 x 5.5 x 4.7 cm. There is no hydronephrosis, nephrolithiasis or renal mass. There is minimal pelviectasis. Bladder: The urinary bladder appears normal. The urinary bladder measures 12.1 x 7.1 x 5.5 cm for a calculated volume of 245 mL. Bilateral ureteral jets are visible within the urinary bladder excluding complete ureteral obstruction. Aorta: The abdominal aorta appears normal as visualized. Inferior vena cava: The inferior vena cavaappears normal as visualized. IMPRESSION: 1. There is mild right hydronephrosis. 2.The urinary bladder measures 12.1 x 7.1 x 5.5 cm for a calculated volume of 245 mL. Bilateral ureteral jets are visible within the urinary bladder excluding complete ureteral obstruction. at 2024 Reported and signed by: Quinten Kennedy DO CC: Wilber Hewitt MD; Rupali Heredia Technologist: Tata Flores RDMS Probe: Trnscrbd D/ (2024) GCD.CPS Orig Print D/T: S: 04/23/2021 (2025) [facility] NAME: KAREN GRANT Radiology Department PHYS: Wilber Sanchez MD [address] : 1995 AGE: 25 SEX: F [id number] LOC: [id number] A PHONE #: [phone] EXAM DATE: 04/23/2021 STATUS: ADM IN FAX #: [phone] RAD NO: Page 1 Signed Report Patient Name: KAREN GRANT Unit No: [id number] EXAMS: CPT CODE: [id number] [facility] [address] <Continued> [facility] NAME: KAREN GRANT Radiology Department PHYS: Wilber Sanchez MD [address] : 1995 AGE: 25 SEX: F [place] [address] LOC: F.5046 A PHONE #: [phone] EXAM DATE: 04/23/2021 STATUS: ADM IN FAX #: [phone] RAD NO: Page 2 Signed ReportAG HEPATITIS B [id number] 23:39:00 Test Item Value Reference Range Interpretation Comments AG HEPATITIS B SURFACE (test code NONREACTIVE NONREACTIVE = HBSAG) IS CONSENT FORM SIGNED FOR HIV TESTING? YAB HEPATITIS C [id number] 23:39:00 Test Item Value Reference Range Interpretation Comments AB HEPATITIS C (test code = NONREACTIVE NONREACTIVE HCVAB) SIGNAL TO CUTOFF (test code = <0.02 <0.80 N CUTOFF) IS CONSENT FORM SIGNED FOR HIV TESTING? YAB [id number] 23:39:00 Test Item Value Reference Range Interpretation Comments AB TREPONEMA (test code = TREPAB) NONREACTIVE NONREACTIVE IS CONSENT FORM SIGNED FOR HIV TESTING? YAB HIV 1 23:39:00 Test Item Value Reference Range Interpretation Comments AB HIV 1 2 (test code = FDJ14ZJ) NONREACTIVE IS CONSENT FORM SIGNED FOR HIV TESTING? YAG HEPATITIS B [id number] 23:11:00 Test Item Value Reference Range Interpretation Comments AG HEPATITIS B SURFACE (test code NONREACTIVE NONREACTIVE = HBSAG) IS CONSENT FORM SIGNED FOR HIV TESTING? KALYN HEPATITIS C [id number] 23:11:00 Test Item Value Reference Range Interpretation Comments AB HEPATITIS C (test code = HCVAB) NONREACTIVE SIGNAL TO CUTOFF (test code = CUTOFF) <0.80 IS CONSENT FORM SIGNED FOR HIV TESTING? HARIKAB [id number] 23:11:00 Test Item Value Reference Range Interpretation Comments AB TREPONEMA (test code = TREPAB) NONREACTIVE NONREACTIVE IS CONSENT FORM SIGNED FOR HIV TESTING? HARIKAB HIV 1 23:11:00 Test Item Value Reference Range Interpretation Comments AB HIV 1 2 (test code = WGA37QK) NONREACTIVE IS CONSENT FORM SIGNED FOR HIV TESTING? YURINALYSIS [id number] 23:08:00 Test Item Value Reference Range Interpretation Comments UA COLOR (test code = YELLOW YELLOW COLU) UA APPEARANCE (test code CLOUDY CLEAR A = APPU) UA GLUCOSE DIPSTICK (test NEGATIVE NEG code = DGLUU) UA BILIRUBIN DIPSTICK NEGATIVE NEG (test code = BILU) UA KETONE DIPSTICK (test 2+ NEG A code = KETU) UA SPECIFIC GRAVITY (test 1.015 1.001-1.035 N code = SGU) UA BLOOD DIPSTICK (test 2+ NEG A code = XIN) UA PH DIPSTICK (test code 5.0 5-9 = DHARA) UA PROTEIN DIPSTICK (test NEGATIVE NEG code = PROU) UA UROBILINIOGEN DIPSTICK NEGATIVE mg/dL NEG (test code = URO) UA NITRITE DIPSTICK (test NEG NEG code = KAUSHIK) UA LEUKOCYTE ESTERASE 3+ NEG A DIPSTICK (test code = LEUU) UA WBC (test code = WBCU) TOO NUMEROUS TO CNT NONE SEEN A #/hpf UA RBC (test code = RBCU) 16-20 #/hpf NONE SEEN A UA EPITHELIAL CELLS (test MODERATE #/HPF RARE-FEW A code = EPIU) UA BACTERIA (test code = RARE /HPF RARE-FEW BACU) UA MUCUS (test code = RARE NONE SEEN MUCU) URINE SAMPLE: CLEAN CATCHCBC W/AUTO [id number] 22:47:00 Test Item Value Reference Range Interpretation Comments WHITE BLOOD CELL (test code = WBC) 10.9 K/mm3 6.5-12.3 N RED BLOOD CELL (test code = RBC) 3.28 M/mm3 3.51-4.69 L HEMOGLOBIN (test code = HGB) 10.4 g/dL 10.1-13.8 N HEMATOCRIT (test code = HCT) 30.1 % 32.5-41.8 L MEAN CELL VOLUME (test code = MCV) 91.8 fL 84.6-96.6 N MEAN CELL HGB (test code = MCH) 31.7 pg 27.3-33.9 N MEAN CELL HGB CONCETRATION (test 34.6 gm/dL 32.0-34.2 H code = MCHC) RED CELL DISTRIBUTION WIDTH (test 13.1 % 12.2-16.3 N code = RDW) PLATELET COUNT (test code = PLT) 172 K/mm3 134-363 N MEAN PLATELET VOLUME (test code = 9.3 fL 9.2-12.7 N MPV) NEUTROPHIL % (test code = NT%) 78.5 % 57.9-77.3 H LYMPHOCYTE % (test code = LY%) 12.6 % 14.5-29.7 L MONOCYTE % (test code = MO%) 8.1 % 3.6-10.2 N EOSINOPHIL % (test code = EO%) 0.1 % 0.0-3.0 N BASOPHIL % (test code = BA%) 0.2 % 0.1-0.9 N NEUTROPHIL # (test code = NT#) 8.5 K/mm3 LYMPHOCYTE # (test code = LY#) 1.4 K/mm3 MONOCYTE # (test code = MO#) 0.9 K/mm3 EOSINOPHIL # (test code = EO#) 0.01 K/mm3 BASOPHIL # (test code = BA#) 0.0 K/mm3 RBC MORPHOLOGY REQUIRED (test code NORMAL NORMAL = RBCM) PLATELET MORPHOLOGY REQUIRED (test NORMAL NORMAL code = PLTMR) COMPREHENSIVE METABOLIC [id number] 22:45:00 Test Item Value Reference Range Interpretation Comments SODIUM (test code = NA) 136 mEq/L 135-145 N POTASSIUM (test code = K) 3.6 mEq/L 3.5-5.0 N CHLORIDE (test code = CL) 103 mEq/L 100-115 N CARBON DIOXIDE (test code = CO2) 22 mEq/L 22-31 N ANION GAP (test code = GAP) 14.40 10-20 N GLUCOSE (test code = GLU) 81 mg/dL 65-110 N BLOOD UREA NITROGEN (test code = 7 mg/dL 7-18 N BUN) GLOMERULAR FILTRATION RATE (test 152 ml/min >60 N code = GFR) CREATININE (test code = CREAT) 0.5 mg/dL 0.5-1.0 N TOTAL PROTEIN (test code = PROT) 6.2 gm/dL 6.3-8.2 L ALBUMIN (test code = ALB) 2.7 gm/dL 3.4-4.8 L CALCIUM (test code = CA) 8.3 mg/dL 8.4-10.2 L BILIRUBIN TOTAL (test code = BILT) 0.6 mg/dL 0.2-1.0 N SGOT/AST (test code = AST) 14 units/L 15-37 L SGPT/ALT (test code = ALT) 18 units/L 12-78 N ALKALINE PHOSPHATASE TOTAL (test 57 units/L 46-116 N code = ALKP) <14 WEEKS US [id number] 16:40:28Viable IUP confirmed, nl FHR. Sonoluscent area consistent with subchorionic hemorrhage present, 1 cm maximum diameter.[facility]<14 WEEKS US [id number] 16:40:28Viable IUP confirmed, nl FHR. Sonoluscent area consistent with subchorionic hemorrhage present, 1 cmmaximum diameter.[facility] Paso[facility]ORH [id number] 21:35:12 Test Item Value Reference Range Interpretation Comments ABO & RH (test code O Positive Performe d at [facility] = 20) [facility] [address]Gnha Free: [phone] A No. [id number] [facility] Paso[facility] and Screen - ONCE [id number] 21:05:35 Test Item Value Reference Range Interpretation Comments ABO & RH (test code O POSITIVE Performe d at [facility] = 20) [facility] [address]Wxfn Free: [phone] A No. [id number] IAT (test code = Negative Performed a t [facility] 1185) [facility] Blood [facility] [address] [place] [address] [place] [address]Tmw[place] Free: [phone] A No. [id number] [facility] METABOLIC PANEL (NA, K, CL, CO2, GLUCOSE, BUN, CREATININE, CA)2021-01-28 20:21:43 Test Item Value Reference Range Interpretation Comments NA (test code = 140 mmol/L 135-145 4306274508) K (test code = 4.1 mmol/L 3.5-5.0 1545818095) CL (test code = 105 mmol/L 98-108 3371550129) CO2 TOTAL (test code = 25 mmol/L 23-31 2080202778) AGAP (test code = 2-16 0098311435) BUN (test code = 13 mg/dL 7-23 3166191884) GLUCOSE (test code = 86 mg/dL 70-110 8505274050) CREATININE (test code = 0.46 mg/dL 0.50-1.04 L 7101059790) CALCIUM (test code = 9.6 mg/dL 8.6-10.6 2464908098) eGFR (test code = mL/min/1.73m2 2619982884) BABATUNDE (test code = BABATUNDE) Association of Glomerular Filtration Rate (GFR) and Staging of Kidney Disease* + --+ --+ ------+| GFR (mL/min/1.73 m2) ?| With Kidney Damage ?| ?Without Kidney Damage+ --------+ --------+ +| ?>90 ?| ?Stage one ?| ? Normal ?+ ---+ ---+ -------+| ?60-89 ?| ?Stage two ?| ? Decreased GFR ? + --+ --+ ------+| ?30-59 ?| ?Stage three ?| ? Stage three ? + --+ --+ ------+| ?15-29 ?| ?Stage four ? | ? Stage four ?+ ---+ ---+ -------+| ?<15 (or dialysis) ? ?| ?Stage five ? | ? Stage five ?+ ---+ ---+ -------+ *Each stage assumes the associated GFR level has been in effect for at least three months. ?Stages 1 to 5, with or without kidney disease, indicate chronic kidney disease. Notes: Determination of stages one and two (with eGFR >59mL/min/1.73 m2) requires estimation of kidney damage for at least three months as defined by structural or functional abnormalities of the kidney, manifested by either:Pathological abnormalities or Markers of kidney damage (including abnormalities in the composition of the blood or urine or abnormalities in imaging tests). Lab Interpretation Abnormal (test code = 92862-6) [facility] Paso[facility]INALYSIS2021-04-22 20:18:23 Test Item Value Reference Range Interpretation Comments APPEARANCE (test code = Clear Clear 7801984934) COLOR (test code = Straw Yellow A 6585285731) PH (test code = 4.8-8.0 1085370627) SP GRAVITY (test code = 1.003-1.030 6541367098) GLU U QUAL (test code = Normal Normal 3221074532) BLOOD (test code = 2+ Negative A 4508022788) KETONES (test code = Negative Negative 5931229399) PROTEIN (test code = Negative Negative 2887-8) UROBILIN (test code = Normal Normal 0133218667) BILIRUBIN (test code = Negative Negative 7358343239) NITRITE (test code = Negative Negative 7046744411) LEUK BROOKS (test code = 25/uL Negative A 0457801141) RBC/HPF (test code = See_Comment [Autom ated message] 1275911152) The system [employer] generated this result transmitted ref erence range: 0 - 3 HP F. The reference range was not used to int erpret this result as normal/abnormal . WBC/HPF (test code = See_Comment [Autom ated message] 0540958656) The system [employer] generated this result transmitted ref erence range: 0 - 5 HP F. The reference range was not used to int erpret this result as normal/abnormal . BACTERIA (test code = Negative Negative 2817312649) SQ EPITH (test code = See_Comment [Auto mated message] 6149128404) The system [employer] generated this result transmitted ref erence range: <=2 HPF. The reference range was not used to int erpret this result as normal/abnormal . Lab Interpretation (test Abnormal code = 45384-4) [facility] WITHOUT [id number] 20:03:04 Test Item Value Reference Range Interpretation Comments WBC (test code = 6690-2) See_Comment [A utomated message] The system [employer] generated this result transmit [place] reference range : 4.30 - 11.10 10*3/?L. The reference range was not used to interpret this result as normal/abnormal . RBC (test code = 789-8) See_Comment [Au tomated message] The system [employer] generated this result transmit [place] reference range : 3.93 - 5.25 10* 6/?L. The reference r jorge a was not used to interpret this result as normal/abnormal . HGB (test code = 718-7) 13.8 g/dL 11.6-15.0 HCT (test code = 4544-3) 41.1 % 35.7-45.2 MCH (test code = 785-6) 30.5 pg 25.9-32.8 MCV (test code = 787-2) 90.7 fL 80.6-95.5 MCHC (test code = 786-4) 33.6 g/dL 31.6-35.1 PLT (test code = 777-3) See_Comment [Au tomated message] The system [employer] generated this result transmit [place] reference range : 166 - 358 10*3/?L. The reference range was not used to interpret this result as normal/abnormal . MPV (test code = 8.9 fL 9.5-12.9 L 64353-6) RDW-CV (test code = 11.8 % 12.0-15.5 L 788-0) RDW-SD (test code = 39.3 fL 39.0-49.9 42418-4) NRBC x10^3 (test code = <0.01 See_Comment [Au tomated message] 9661158190) The system [employer] generated this result transmit [place] reference range : 10*3/?L. The reference range was not used to interpret this result as normal/abnormal . NRBC/100 WBC (test code See_Comment [Au tomated message] = 9958786565) The system [facility] generated this result transmit [place] reference range : 0.0 - 10.0 /100 WBC s. The reference r jorge a was not used to interpret this result as normal/abnormal . IPF % (test code = 1059950478) Lab Interpretation (test Abnormal code = 93564-4) [facility] [id number] 19:58:00 Test Item Value Reference Range Interpretation Comments POCT PREG (test code = 1605) Positive On board controls acceptable with Present C Line (test code = 3574) POCT PREG LOT # (test code = 3575) [id number] POCT PREG TEST DATE (test 2022-09-07 code = 3576) Lab Interpretation (test code = Normal 40449-7) [facility]
[2021-09-04] MEDS ORDERED: MEPERIDINE HCL 25 MG/ML SYR IV PRN (18:30)
[2021-09-04] MEDS ORDERED: Ringers Lactate 1,000 ML IV PRN (18:30)
[2021-09-04] MEDS ORDERED: CARBOPROST TROME 250 MCG/ML IM PRN (18:30)
[2021-09-04] MEDS ORDERED: METHYLERGONOVINE 0.2MG/ML AMP IM PRN (18:30)
[2021-09-04] MEDS ORDERED: OXYTOCIN/LR 20 UNIT/1,000 ML BAG IV SCH (19:00)
[2021-09-04 19:21] VITALS: BMI 27.3
[2021-09-04 19:45] LABS: Urine Appearance Clear (Clear); Urine Bilirubin Negative (Negative); Urine Blood 1+ (Negative); Urine Color Yellow (Yellow); Urine Glucose Negative (Negative); Urine Protein Negative (Negative); Urine Specific Gravity 1.025 (1.005-1.030); Urine Urobilinogen 0.2 mg/dL (0.2-1.0)
[2021-09-04 19:51] LABS: Urine Microscopic Reflex ORDER UMIC
[2021-09-04 19:55] LABS: Absolute Lymphocytes (CBC) 2.8 K/uL (0.7-4.9); Basophils % 0.4 % (0-1.3); Hematocrit 33.5 % (36.0-45.0); Lymphocytes % 23.7 % (15.3-44.8); MPV 7.3 fL (7.6-11.3)
[2021-09-04 19:55] LABS: Urine Bacteria 20-50 /HPF (<20); Urine Mucus SLIGHT /HPF (NONE SEEN)
[2021-09-04] MEDS: BUTORPHANOL 1 MG/ML INJ IV PRN (20:01)
[2021-09-04] MEDS: PROMETHAZINE INJ 25 MG/ML AMP IV PRN (20:01)
[2021-09-04] MEDS: Ringers Lactate 1,000 ML IV SCH (21:20)
[2021-09-04] MEDS ORDERED: 0.2% ROPIVACAINE (200 MG/100 ML) BAG EP ONE (23:38)
[2021-09-04] MEDS ORDERED: ROPIVACAINE HCL 0.2% 20ML AMP EP ONE (23:39)
[2021-09-04] MEDS ORDERED: FENTANYL CITR 100 MCG/2 ML IV ONE (23:39)
[2021-09-05] MEDS: BUTORPHANOL 1 MG/ML INJ IV PRN (03:44)
[2021-09-05] MEDS: Ringers Lactate 1,000 ML IV SCH (05:06)
[2021-09-05] MEDS ORDERED: FENTANYL CITR 100 MCG/2 ML ONE (05:33)
[2021-09-05] MEDS ORDERED: CARBOPROST TROME 250 MCG/ML IM ONE (06:06)
[2021-09-05] MEDS ORDERED: METHYLERGONOVINE 0.2MG/ML AMP IM ONE (06:06)
[2021-09-05] MEDS ORDERED: miSOPROStoL 100 MCG TAB ONE (06:50)
[2021-09-05] MEDS: PROMETHAZINE INJ 25 MG/ML AMP IV PRN (07:25)
[2021-09-05] MEDS ORDERED: CARBOPROST TROME 250 MCG/ML IM PRN (07:47)
[2021-09-05] MEDS ORDERED: BISACODYL 10 MG RECTAL SUPP PR PRN (07:47)
[2021-09-05] MEDS ORDERED: METHYLERGONOVINE 0.2MG/ML AMP IM PRN (07:47)
[2021-09-05] MEDS ORDERED: miSOPROStoL 100 MCG TAB VAG ONE (08:00)
[2021-09-05] MEDS ORDERED: IBUPROFEN 600 MG TAB PO PRN (08:07)
[2021-09-05] MEDS ORDERED: Rho(D) IG (HUMAN) 300 MCG SYR IM PRN (08:12)
[2021-09-05] MEDS ORDERED: MEASLES,MUMPS,RUBELLA VAC 0.5ML SQVAC ONE (09:00)
[2021-09-05] MEDS ORDERED: OXYTOCIN/LR 20 UNIT/1,000 ML BAG IV SCH (09:00)
[2021-09-05] MEDS ORDERED: Tdap (Diph,Pertuss(Acell),Tet Vac) 0.5 ML SYR IMVAC ONE (09:00)
[2021-09-05] MEDS: Oxycodone HCl/Acetaminophen 1 TAB TAB PO PRN ×4 (10:30→23:02)
[2021-09-05] MEDS ORDERED: Ringers Lactate 2,000 ML IV ONE (10:37)
[2021-09-05] MEDS ORDERED: INFLUENZA VACCINE (for 6+ mo) 0.5 ML DOSE IMVAC ONE (17:00)
[2021-09-06 01:28] LABS: RPR (Rapid Plasma Reagin) NON-REACT (NON-REACT)
[2021-09-06] MEDS: Oxycodone HCl/Acetaminophen 1 TAB TAB PO PRN ×2 (04:07→09:01)
[2021-09-06 04:27] VITALS: TEMP 97.8
[2021-09-06 07:34] VITALS: BP 112/75
[2021-09-07 18:23] LABS: HBsAG Nonreactive (Nonreactive)
== END 2021-09-06 11:37 | disposition home or self-care (01) | DRG 807 ==
LOC: L&D 16:32 → 2ND-WC 18:10
PROVIDERS: ADMIT Obstetrics & Gynecology; ATTEND Obstetrics & Gynecology
PROC: 10E0XZZ Delivery of Products of Conception, External Approach (ICD-10-PCS; principal; 2021-09-05)
PROC: 10907ZC Drainage of Amniotic Fluid, Therapeutic from Products of Conception, Via Natural or Artificial Opening (ICD-10-PCS; 2021-09-05)
DX: O80 Encounter for full-term uncomplicated delivery (principal); Z37.0 Single live birth; Z3A.39 39 weeks gestation of pregnancy; Z20.822 Contact with and (suspected) exposure to COVID-19
CPT/HCPCS: 36415; 81003; 81015; 85025; 86592; 86850; 86900; 86901; 87086; 87088; 87340; G0433; J0595; J2210; J2550; J2590; J2795; J3010; J7120; U0003